=== PATIENT | female | born 1995 | race American Indian/Alaskan Native ===

== ENCOUNTER → 2018-02-16 | Emergency (ER) | payer OTHER ==
[2018-02-16 00:16] VITALS: BMI 26.4
--- NOTE | 2018-02-16 02:21 | OBHP ---
Datetime: 02/16/2018 02:16 IP Adm Impression: , intrauterine IP Admit Plan: Observation/Evaluation Admit Comment, IP Provider: Patient is @ 27 wks presenting to [place] [facility] with abdominal cramps , pressure, no vaginal bleeding, no leaking, +FM. Patient denies urinary discomfort, no other signs/s ymptoms of labor. No antepartum issues, no medical problems, no medications. FHr= reassuring, 125 mod shauna, no contractions on the monitor. Patient was evaluated and ruled out for labor in [facility]. Patient was sent here for monitoring. No signs of chorio or pre-term labor. Patient to be disch arged home, labor precautions given Pelvic Type - PN: Adequate Extremities - PN: Normal Abdomen - PN: Normal Back - PN: Normal Breast - PN: Normal Lungs - PN: Normal Heart - PN: Normal Thyroid - PN: Normal Neurologic - PN: Normal HEENT - PN: Normal General - PN: Normal FHR - Baseline A Provider: 125 EGA AdmitDate IP: 27.0 Vital Signs Provider: Reviewed; Within Normal Limits IP Chief Complaint: Uterine contractions NICHD Variability Prov Fetus A: Moderate 6-25bpm NICHD Accel Fetus A IP Provider: [id number] Genitourinary Exam: Normal DTRs - PN: Normal
--- NOTE | 2018-02-16 02:23 | OBDCSUM ---
Datetime: 02/16/2018 02:13 Discharged to, Provider: [facility] Disch Instr Activity: Normal activity Disch Instr Diet: Regular Discharge Diagnosis, Provider: False Labor - Undelivered Discharge Time: 02/16/2018 02:13 Follow up in weeks, Provider: Next scheduled appt in 2-3 weeks as per pt. Disch Referrals: None
[2018-02-16 06:44] VITALS: BP 119/80; PULSE 98; TEMP 98
== END | disposition home or self-care (01) ==
LOC: H.EROB2 01:37
DX: O26.92 Pregnancy related conditions, unspecified, second trimester (principal); R10.2 Pelvic and perineal pain; Z3A.27 27 weeks gestation of pregnancy